=== PATIENT | male | born 1940 | race Native Hawaiian/Other Pacific Islander ===

== ENCOUNTER 2017-09-01 16:40 | Inpatient (IN) | payer MEDICARE ==
[2017-09-02] MEDS ORDERED: Albuterol-Ipratrop 3 mg / 0.5 (3 ml) UD INH PRN (16:13)
[2017-09-02 16:18] VITALS: BMI 29.8
--- NOTE | 2017-09-02 16:34 | CP.PCM.HP ---
History of Present Illness - History of Present Illness History of Present Illness: CC: s/p CVA Vipul Li is a 76 year old male with a past medical history of atrial fibrillation anticoagulated on Eliquis, essential hypertension, intermittent asthma (unspecified severity), gout, who presented to [facility] acute rehabilitation from [facility] after experiencing a CVA on 08/29/2017. The patient currently has no complaints. He is moderately aphasic after his CVA and continues to have left sided facial droop and left upper extremity weakness, however he is awake, alert, and coherent. Patient denies chest pain, shortness of breath, fevers, chills, nausea, vomiting, diarrhea, headache. All of the patient's questions were answered at the bedside. The patient is here in acute rehab for further PT/OT, reconditioning, and monitoring. PMD: Asael Oneil Surrogate decision maker: Reina Sam, spouse Present on Admission - Present on Admission Any Indicators Present on Admission: No Review of Systems - Review of Systems Review of Systems: A 12 point review of systems was conducted and found to be negative other than what was mentioned in the HPI. Past Patient History - Infectious Disease Hx of Infectious Diseases: None - Past Medical History & Family History Past Medical History?: Yes Past Family History: Reviewed and not pertinent - Past Social History Smoking Status: Never Smoked Alcohol: None Drugs: Denies Home Situation {Lives}: With Family - CARDIAC Hx Atrial Fibrillation: Yes Hx Hypertension: Yes - PULMONARY Hx Respiratory Disorders: Yes - MUSCULOSKELETAL/RHEUMATOLOGICAL Hx Gout: Yes Meds Allergies/Adverse Reactions: Allergies Allergy/AdvReac Type Severity Reaction Status Date / Time No Known Allergies Allergy Verified 09/02/17 11:58 Physical Exam - Additional Findings Additional findings: Physical exam: Constitutional- cooperative, awake, alert Head- NCAT, PERRL. + Left sided facial droop. Eye- PERRL, EOMI ENT- normal exam, MMM. Neck- normal inspection, supple, no JVD Respiratory- CTAB, no wheezes rales rhonchi Cardiovascular- RRR, +S1, +S2 no MRG GI/Abdominal- normal bowel sounds, soft, no mass, no hsm Skin- warm, dry Extremities Exam- + Left upper extremity 3/5 weakness, other extremities have normal strength. normal capillary refill, normal inspection Neurological Exam- alert, awake, oriented. + Aphasia, left facial droop, left upper extremity weakness Psych- normal mood, normal affect Assessment & Plan - Assessment and Plan (Free Text) Plan: ASSESSMENT/PLAN Vipul Li is a 76 year old male with a past medical history of atrial fibrillation anticoagulated on Eliquis, essential hypertension, asthma ( unspecified severity), gout, who presented to [facility] acute rehabilitation from [facility] after experiencing a CVA on 08/29/2017. The patient currently has no complaints. He is moderately aphasic after his CVA and continues to have left sided facial droop and left upper extremity weakness. The patient is here in acute rehab for further PT/OT, reconditioning, and monitoring. 1) Acute CVA - Per MRI at [facility] on 08/30- acute nonhemorrhagic deep white/tabor infarct, white matter small vessel disease - CTA head showed severe cavernous and severe supraclinoid left and right internal carotid artery stenosis, severe proximal P2 right posterior cerebral artery focal stenosis - Admit to acute rehab for physical therapy, occupational therapy, speech therapy, recreational therapy - Physiatry consultation with Dr. Boston - diet: mechanical soft, thin liquids, heart healthy diet - Continue ASA, statin, Eliquis 2) Essential hypertension - Continue Norvasc 10 mg po daily - Continue Hydralazine 25 mg po daily - Monitor vitals as per nursing protocol 3 )Atrial fibrillation - Anticoagulated on Eliquis - Monitor HR, apparently was not on any beta blockers previously; may consider adding low dose beta julio c if heart rate begins to be uncontrolled 4) Dyslipidemia - Continue Lipitor 20 mg po HS 5) Asthma, unspecified severity, intermittent - Continue Duoneb PRN 6) Gout - Continue Allopurinol - monitor for flare ups 7) DVT prophylaxis - Eliquis
[2017-09-03 06:58] LABS: BLOOD UREA NITROGEN 17 mg/dl (9-20); CALCIUM 8.9 mg/dL (8.4-10.2); GFR AFRICAN-AMERICAN > 60; GFR NON-AFRICAN AMERICAN > 60
[2017-09-03 06:59] LABS: HEMOGLOBIN 15.3 g/dL (12.0-18.0); MEAN CELL VOLUME 93.6 fl (80.0-94.0); MEAN CORPUSCULAR HEMOGLOBIN 31.1 pg (27.0-31.0); MEAN CORPUSCULAR HGB CONC 33.2 g/dL (33.0-37.0); RBC 4.92 Mil/uL (4.40-5.90); RED CELL DISTRIBUTION WIDTH 15.9 % (11.5-14.5); WHITE BLOOD COUNT 7.1 K/uL (4.8-10.8)
[2017-09-03] MEDS: Pantoprazole 40 mg EC Tab PO SCH (09:03)
--- NOTE | 2017-09-03 12:35 | PCM.OPOC ---
Physiatry Overall Plan of Care - Overall Plan of Care Estimated Length of Stay in Weeks: 2 Rehab Impairment: Mobility, Gait, Speech, Balance, Coordination Etiologic Diagnosis: Cerebrovascular Accident Rehab/Medical Prognosis: Good - Anticipated Interventions Physical Therapy:: Yes Occupational Therapy:: Yes Speech Therapy:: Yes Recreational Therapy:: Yes - Therapy Goals Bed Mobility: Supervision Ambulation: Supervision Functional Positional Changes:: Supervision - Discharge Plan Discharge Destination: Home
--- NOTE | 2017-09-03 12:38 | CP.PCM.CON ---
History of Present Illness - History of Present Illness History of Present Illness: Dr. Boston PMR consultation on Vipul Vargas, born 1940 who has been admitted to [facility] for acute inpatient rehabilitation after an acute right CVA with left HP and speech abnormality. He is right hand dominant and has been independent [employer]. Right ICA stenosis. Acute non-hemorrhagic right CVA Review of Systems - Constitutional Constitutional: absent: Anorexia, Chills - EENT Eyes: absent: Blind Spots Ears: absent: Decreased Hearing - Cardiovascular Cardiovascular: absent: Chest Pain - Respiratory Respiratory: absent: Dyspnea - Gastrointestinal Gastrointestinal: absent: Abdominal Pain, Constipation - Integumentary Integumentary: absent: Wounds - Neurological Neurological: Abnormal Gait, Abnormal Speech, Focal Weakness, Lack of Coordination, Weakness Past Patient History - Infectious Disease Hx of Infectious Diseases: None - Past Medical History & Family History Past Medical History?: Yes Past Family History: Reviewed and not pertinent - Past Social History Smoking Status: Never Smoked Alcohol: None Drugs: Denies Home Situation {Lives}: With Family - CARDIAC Hx Atrial Fibrillation: Yes Hx Hypertension: Yes - PULMONARY Hx Respiratory Disorders: Yes - HEMATOLOGICAL/ONCOLOGICAL Hx AIDS: No Hx Human Immunodeficiency Virus (HIV): No - MUSCULOSKELETAL/RHEUMATOLOGICAL Hx Gout: Yes Meds Allergies/Adverse Reactions: Allergies Allergy/AdvReac Type Severity Reaction Status Date / Time No Known Allergies Allergy Verified 09/02/17 11:58 - Medications Medications: Current Medications Albuterol/Ipratropium (Duoneb 3 Mg/0.5 Mg (3 Ml) Ud) 3 ml INH Q4 PRN PRN Reason: Shortness of Breath Allopurinol (Zyloprim) 100 mg PO DAILY [facility] Last Admin: 09/03/17 09:03 Dose: 100 mg Amlodipine Besylate (Norvasc) 10 mg PO DAILY [facility] Last Admin: 09/03/17 09:03 Dose: 10 mg Apixaban (Eliquis) 5 mg PO BID [facility] PRN Reason: Protocol Last Admin: 09/03/17 09:02 Dose: 5 mg Aspirin (Ecotrin) 81 mg PO DAILY [facility] Last Admin: 09/03/17 09:02 Dose: 81 mg Atorvastatin Calcium (Lipitor) 20 mg PO HS [facility] Last Admin: 09/02/17 21:17 Dose: 20 mg Hydralazine HCl (Apresoline) 25 mg PO DAILY [facility] Last Admin: 09/03/17 09:03 Dose: 25 mg Pantoprazole Sodium (Protonix Ec Tab) 40 mg PO DAILY [facility] Last Admin: 09/03/17 09:03 Dose: 40 mg Physical Exam - Constitutional Appears: Non-toxic - Head Exam Head Exam: ATRAUMATIC, NORMOCEPHALIC. absent: NORMAL INSPECTION (some left facial droop) - Eye Exam Eye Exam: EOMI - ENT Exam ENT Exam: Mucous Membranes Moist - Respiratory Exam Respiratory Exam: NORMAL BREATHING PATTERN - Cardiovascular Exam Cardiovascular Exam: REGULAR RHYTHM - GI/Abdominal Exam GI & Abdominal Exam: Normal Bowel Sounds - Extremities Exam Extremities exam: Negative for: calf tenderness - Neurological Exam Neurological exam: Alert, Oriented x3 (has decrease in left facial nerve) - Psychiatric Exam Psychiatric exam: Normal Affect (decreased coordination on the left with decrease UE strength. + dysarthria) Results - Vital Signs Recent Vital Signs: Last Vital Signs Temp 97.1 F L 09/03/17 07:54 Pulse 71 09/03/17 09:03 Resp 19 09/03/17 07:54 BP 144/85 09/03/17 09:03 Pulse Ox 98 09/03/17 07:54 - Labs Result Diagrams: 09/03/17 05:29 09/03/17 05:29 Labs: Laboratory Results - last 24 hr 09/03/17 09/03/17 05:29 05:29 WBC 7.1 RBC 4.92 Hgb 15.3 Hct 46.1 MCV 93.6 MCH 31.1 H MCHC 33.2 RDW 15.9 H Plt Count 170 Sodium 140 Potassium 3.6 Chloride 101 Carbon Dioxide 26 Anion Gap 17 BUN 17 Creatinine 1.1 Est GFR ( Amer) > 60 Est GFR (Non-Af Amer) > 60 Random Glucose 95 Calcium 8.9 Assessment & Plan - Assessment and Plan (Free Text) Assessment: PT/OT to continue to help increase functional independence Team conference for d/c planning Pain: controlled Vascular: no evidence of DVT GI: No evidence of constipation or diarrhea Patient is an excellent acute rehabilitation candidate and will have focused speech, PT, OT and recreational therapy to help facilitate a safe and appropriate d/c plan He has + dysarthria, decreased left UE coordination and decreased gait. Impairment code 01.1
[2017-09-04] MEDS: Pantoprazole 40 mg EC Tab PO SCH (09:09)
[2017-09-05] MEDS: Pantoprazole 40 mg EC Tab PO SCH (09:16)
[2017-09-06] MEDS: Pantoprazole 40 mg EC Tab PO SCH (08:25)
--- NOTE | 2017-09-06 14:40 | CP.PCM.PN ---
Subjective - Date & Time of Evaluation Date of Evaluation: 09/06/17 Time of Evaluation: 11:50 - Subjective Subjective: Patient seen and examined. Denied any complaint aside from slurring and left facial weakness. Objective - Vital Signs/Intake and Output Vital Signs (last 24 hours): Temp Pulse Resp BP Pulse Ox 97.3 F L 71 19 153/82 H 97 09/06/17 07:00 09/06/17 08:24 09/06/17 07:00 09/06/17 08:24 09/06/17 07:00 - Medications Medications: Current Medications Albuterol/Ipratropium (Duoneb 3 Mg/0.5 Mg (3 Ml) Ud) 3 ml INH Q4 PRN PRN Reason: Shortness of Breath Allopurinol (Zyloprim) 100 mg PO DAILY [facility] Last Admin: 09/06/17 08:25 Dose: 100 mg Amlodipine Besylate (Norvasc) 10 mg PO DAILY [facility] Last Admin: 09/06/17 08:24 Dose: 10 mg Apixaban (Eliquis) 5 mg PO BID [facility] PRN Reason: Protocol Last Admin: 09/06/17 08:24 Dose: 5 mg Aspirin (Ecotrin) 81 mg PO DAILY [facility] Last Admin: 09/06/17 08:24 Dose: 81 mg Atorvastatin Calcium (Lipitor) 20 mg PO HS [facility] Last Admin: 09/05/17 21:40 Dose: 20 mg Hydralazine HCl (Apresoline) 25 mg PO DAILY [facility] Last Admin: 09/06/17 08:24 Dose: 25 mg Pantoprazole Sodium (Protonix Ec Tab) 40 mg PO DAILY [facility] Last Admin: 09/06/17 08:25 Dose: 40 mg - Labs Labs: 09/03/17 05:29 09/03/17 05:29 - Constitutional Appears: No Acute Distress - Head Exam Head Exam: ATRAUMATIC - Eye Exam Eye Exam: absent: Scleral icterus - ENT Exam ENT Exam: Mucous Membranes Moist - Neck Exam Neck Exam: absent: Meningismus - Respiratory Exam Respiratory Exam: absent: Rales, Rhonchi, Wheezes, Respiratory Distress - Cardiovascular Exam Cardiovascular Exam: REGULAR RHYTHM, +S1, +S2 - GI/Abdominal Exam GI & Abdominal Exam: Soft. absent: Tenderness - Rectal Exam Rectal Exam: Deferred - Extremities Exam Extremities Exam: absent: Pedal Edema - Neurological Exam Neurological Exam: Alert, Oriented x3 - Psychiatric Exam Psychiatric exam: Normal Affect - Skin Skin Exam: Dry, Intact Assessment and Plan - Assessment and Plan (Free Text) Assessment: 76 yo male with history of AFib (on Eliquis), HTN, Asthma and Gout was admitted at [facility] because of Acute CVA on 08/29/2017 presenting with slurring of speech, left facial weakness. He was transferred to [facility] and admitted at Acute Rehab for continuation of PT. 1. Acute CVA MRI at [facility] showed acute non-hemorrhagic deep white/tabor infarct CTA showed severe left and right internal carotid artery stenosis and severe proximal right posterior cerebral artery stenosis continue ASA, statin. Eliquis and BP control continue PT/OT/ST 2. HTN BP stable continue Norvasc and Hydralazine 3. AFib rate controlled on Eliquis 4. HLD continue Lipitor 5. Asthma asymptomatic Duoned via nebulizer q 4hrs prn 6. Gout continue Allopurinol
[2017-09-07] MEDS: Pantoprazole 40 mg EC Tab PO SCH (08:31)
--- NOTE | 2017-09-07 13:26 | PSY.TMCNF ---
Nursing - Vital Signs Vital Signs (Last 8 hours): Vital Signs 09/07/17 09/07/17 09/07/17 08:21 08:31 08:32 Temperature 97.5 F L Pulse Rate 70 70 70 Respiratory 19 Rate Blood Pressure 136/76 136/70 133/78 O2 Sat by Pulse 98 Oximetry 09/07/17 09:00 Temperature Pulse Rate 70 Respiratory Rate Blood Pressure 133/78 O2 Sat by Pulse Oximetry Pain: 0 - Medications/Other Issues Comment: Pt at moderate nutritional risk. goal:1. Pt to consume 75-100% of meals. Follow-up due on 09/10/2017 - Bladder Management Bladder Pattern: Normal Voiding Method: Toilet, Urinal - Bowel Management Bowel Pattern: Normal - Goals/Time Frame Comments: Pt was seen awake and alert sitting in his wheelchair in his room. Pt agreeable to participate in session and was brought into recreation room. Pt reported that he would like to be called "Scout' throughout stay. Pt was [id number] however, pt will report incorrectly his age. Pt required verbal cues for repetition of responses at times 2' dysarthria. Pt was able to identify his leisure interests such as cooking, watching television, watching movies, watching sports, and going food shopping. Pt reported that he does cooking and food shopping at home for . Pt agreed to participate in modified agata card task and required min verbal cues for carryover of task rules. Pt tolerated duration of session and participated in bingo task with peers and was mod I with task. Pt returned to room and assisted pt with dinner setup, pt expressed that he was content. Physical Therapy - Transfers Sit to Stand: Verbal Cues, Contact Guard - Ambulation Level of Assistance: Verbal Cues, Contact Guard, Minimal Assistance Distance (ft.): 150 Assistive Devices: N/A, Rolling Walker - Stair Negotiation Stairs: Level of Assistance: Verbal Cues, Contact Guard Number of Stairs: 11 Stairs: Assistive Devices: Left Handrail, Right Handrail - Standing Balance Static Stand: Contact Guard Assist Dynamic Stand: Contact Guard Assist, Minimal Assistance - Insight/Carryover Insight/Carryover: Good - Patient/Family Education Comment: CVA recovery - Assessment/Plan Assessment: Precautions:fall/safety precautions, pain managment, cardiac precautions. Pt is a 76 yo male presenting to acute rehab s/p acute CVA. Pt presented with impaired dynamic standing balance, poor activity tolerance, impaired R handed coordination/dexterity requiring extended time to complete B/ L manipulation tasks . Patient also demoed very poor safety awareness required moderate cueing during transfers/completion self care . Patient would benefit from skilled OT services 5-6x/week as per plan of care to maximize is functional independence prior to a D/C home with his as pt was independent with adls and iadls at baseline. - Goals Timeframe: 2 weeks Goals: Mod I transfers. Mod I ub self care. mod I lb self care. mod I toileting tasks. tub transfer with supervision - Provider Therapist: Mikayla Lazaro PT License Number: [id number] Occupational Therapy - Arousal/Attention/Orientation Patient Orientation: Person, Place - ADL/IADL Self Feeding: Verbal Cues, Set-up Help Grooming: Verbal Cues, Set-up Help Bathing-Upper Extremity: Minimal Assistance Bathing-Lower Extremity: Minimal Assistance Dressing-Upper Extremity: Minimal Assistance Dressing-Lower Extremity: Minimal Assistance - Sitting Balance Static Sitting: Independent with upper extremity support Dynamic Sitting: Requires supervision - Transfers Wheelchair to Bed Transfers: Contact Guard, Minimal Assistance Toilet Transfers: Contact Guard, Minimal Assistance Tub Transfers: Contact Guard, Minimal Assistance Comment: tub/shower transfer TBA - Wheelchair Management Level of Assistance: Minimal Assistance - Upper Extremity Status Right Upper Extremity Comment: AROM WFL. grasp/coordination WFL Left Upper Extremity Comment: AROM WFL. imapired grasp strength. impaired opposition. impaired FM dexterity/coordination. 9 hole peg test LUE: 2 mins 30 seconds - Insight/Carryover Insight/Carryover: Good - Patient/Family Education Comment: CVA recovery - Assessment/Plan Assessment: Precautions:fall/safety precautions, pain managment, cardiac precautions. Pt is a 76 yo male presenting to acute rehab s/p acute CVA. Pt presented with impaired dynamic standing balance, poor activity tolerance, impaired R handed coordination/dexterity requiring extended time to complete B/ L manipulation tasks . Patient also demoed very poor safety awareness required moderate cueing during transfers/completion self care . Patient would benefit from skilled OT services 5-6x/week as per plan of care to maximize is functional independence prior to a D/C home with his as pt was independent with adls and iadls at baseline. - Goals Timeframe: 2 weeks Goals: Mod I transfers. Mod I ub self care. mod I lb self care. mod I toileting tasks. tub transfer with supervision - Provider Therapist: RICH Long License Number: [id number] Speech Therapy - Consult Information Patient on Program: Yes Medical Diagnosis: CVA Treatment Diagnosis: -mild to moderate dysarthria. -moderate cognitive deficits. -suspected moderate oropharyngeal dysphagia - Assessment Memory Impairment: Moderate Speech/Articulation Impairment: Moderate Dysphagia/Swallowing Impairment: Moderate - Plan Assessment: Precautions:fall/safety precautions, pain managment, cardiac precautions. Pt is a 76 yo male presenting to acute rehab s/p acute CVA. Pt presented with impaired dynamic standing balance, poor activity tolerance, impaired R handed coordination/dexterity requiring extended time to complete B/ L manipulation tasks . Patient also demoed very poor safety awareness required moderate cueing during transfers/completion self care . Patient would benefit from skilled OT services 5-6x/week as per plan of care to maximize is functional independence prior to a D/C home with his as pt was independent with adls and iadls at baseline. - Provider Therapist: Laisha Goodman License Number: [id number] Recreational Therapy - Participation Participation: Participates in Individual and/or Group Sessions - Attendance Attendance: 3-5 times per week - Activities Leisure Activities: Cards and Games - Socialization Level of Socialization: Initiates/interacts freely with care givers and peer - Diversional Time Diversional Time: likes playing bingo, cards - Assessment Assessment/Plan: Precautions:fall/safety precautions, pain managment, cardiac precautions. Pt is a 76 yo male presenting to acute rehab s/p acute CVA. Pt presented with impaired dynamic standing balance, poor activity tolerance, impaired R handed coordination/dexterity requiring extended time to complete B/ L manipulation tasks . Patient also demoed very poor safety awareness required moderate cueing during transfers/completion self care . Patient would benefit from skilled OT services 5-6x/week as per plan of care to maximize is functional independence prior to a D/C home with his as pt was independent with adls and iadls at baseline. - Provider Therapist: Bre Schmidt, NURSING MANAGER #[id number] Nutrition - Current Diet Current Diet/ Supplement/ Feedings: mech altered(finely chopped)thin liquids 2 gram Na diet - Appetite Percent Meal Consumed: 50-74% - Assessment/Goals/Time Frame Assessment/Goals/Time Frame: Pt at moderate nutritional risk. goal:1. Pt to consume 75-100% of meals. Follow-up due on 09/10/2017 - Provider Provider: Chika Chapin RD Case Management - Discharge Plan Discharge Plan: Home with significant other/family Rehabilitation Plan - Treatment Plan Treatment Plan: Physical Therapy, Occupational Therapy, Speech, Dietary, Patient /Family Education - Discharge Plan Estimated Date of Discharge: 09/17/17 Discharge to: Home
--- NOTE | 2017-09-07 13:57 | CP.PCM.PN ---
Subjective - Date & Time of Evaluation Date of Evaluation: 09/07/17 Time of Evaluation: 13:56 - Subjective Subjective: Patient seen in the room denies sob/cp stable wants to go home and has decreased insight into his abilities no EATON continue current care Objective - Vital Signs/Intake and Output Vital Signs (last 24 hours): Temp Pulse Resp BP Pulse Ox 97.5 F L 70 19 133/78 98 09/07/17 08:21 09/07/17 09:00 09/07/17 08:21 09/07/17 09:00 09/07/17 08:21 - Medications Medications: Current Medications Albuterol/Ipratropium (Duoneb 3 Mg/0.5 Mg (3 Ml) Ud) 3 ml INH Q4 PRN PRN Reason: Shortness of Breath Allopurinol (Zyloprim) 100 mg PO DAILY [facility] Last Admin: 09/07/17 08:32 Dose: 100 mg Amlodipine Besylate (Norvasc) 10 mg PO DAILY [facility] Last Admin: 09/07/17 08:32 Dose: 10 mg Apixaban (Eliquis) 5 mg PO BID [facility] PRN Reason: Protocol Last Admin: 09/07/17 08:31 Dose: 5 mg Aspirin (Ecotrin) 81 mg PO DAILY [facility] Last Admin: 09/07/17 08:31 Dose: 81 mg Atorvastatin Calcium (Lipitor) 20 mg PO HS [facility] Last Admin: 09/06/17 21:18 Dose: 20 mg Hydralazine HCl (Apresoline) 25 mg PO DAILY [facility] Last Admin: 09/07/17 08:31 Dose: 25 mg Pantoprazole Sodium (Protonix Ec Tab) 40 mg PO DAILY [facility] Last Admin: 09/07/17 08:31 Dose: 40 mg - Labs Labs: 09/03/17 05:29 09/03/17 05:29
[2017-09-08] MEDS: Pantoprazole 40 mg EC Tab PO SCH (08:52)
--- NOTE | 2017-09-08 11:58 | CP.PCM.PN ---
Subjective - Date & Time of Evaluation Date of Evaluation: 09/08/17 Time of Evaluation: 10:00 - Subjective Subjective: The patient was seen and examined at bedside. He is doing well today and has no new complaints. Denies cp, sob, fever, chills. Participating with therapies. Objective - Vital Signs/Intake and Output Vital Signs (last 24 hours): Temp Pulse Resp BP Pulse Ox 97.3 F L 82 19 139/67 97 09/08/17 09:02 09/08/17 09:02 09/08/17 09:02 09/08/17 09:02 09/08/17 09:02 - Medications Medications: Current Medications Albuterol/Ipratropium (Duoneb 3 Mg/0.5 Mg (3 Ml) Ud) 3 ml INH Q4 PRN PRN Reason: Shortness of Breath Allopurinol (Zyloprim) 100 mg PO DAILY [facility] Last Admin: 09/08/17 08:52 Dose: 100 mg Amlodipine Besylate (Norvasc) 10 mg PO DAILY [facility] Last Admin: 09/08/17 08:52 Dose: 10 mg Apixaban (Eliquis) 5 mg PO BID [facility] PRN Reason: Protocol Last Admin: 09/08/17 08:51 Dose: 5 mg Aspirin (Ecotrin) 81 mg PO DAILY [facility] Last Admin: 09/08/17 08:52 Dose: 81 mg Atorvastatin Calcium (Lipitor) 20 mg PO HS [facility] Last Admin: 09/07/17 21:27 Dose: 20 mg Hydralazine HCl (Apresoline) 25 mg PO DAILY [facility] Last Admin: 09/08/17 08:51 Dose: 25 mg Pantoprazole Sodium (Protonix Ec Tab) 40 mg PO DAILY [facility] Last Admin: 09/08/17 08:52 Dose: 40 mg - Labs Labs: 09/03/17 05:29 09/03/17 05:29 - Additional Findings Additional findings: Physical exam: Constitutional- cooperative, awake, alert Head- NCAT, PERRL. + Left sided facial droop. Eye- PERRL, EOMI ENT- normal exam, MMM. Neck- normal inspection, supple, no JVD Respiratory- CTAB, no wheezes rales rhonchi Cardiovascular- RRR, +S1, +S2 no MRG GI/Abdominal- normal bowel sounds, soft, no mass, no hsm Skin- warm, dry Extremities Exam- + Left upper extremity 3/5 weakness, other extremities have normal strength. normal capillary refill, normal inspection Neurological Exam- alert, awake, oriented. + Aphasia, left facial droop, left upper extremity weakness Psych- normal mood, normal affect Assessment and Plan - Assessment and Plan (Free Text) Plan: Vipul Li is a 76 year old male with a past medical history of atrial fibrillation anticoagulated on Eliquis, essential hypertension, asthma ( unspecified severity), gout, who presented to [facility] acute rehabilitation from [facility] after experiencing a CVA on 08/29/2017. The patient currently has no complaints. He is moderately aphasic after his CVA and continues to have left sided facial droop and left upper extremity weakness. The patient is here in acute rehab for further PT/OT, reconditioning, and monitoring. 1) Acute CVA - Per MRI at [facility] on 08/30- acute nonhemorrhagic deep white/tabor infarct, white matter small vessel disease - CTA head showed severe cavernous and severe supraclinoid left and right internal carotid artery stenosis, severe proximal P2 right posterior cerebral artery focal stenosis - Admit to acute rehab for physical therapy, occupational therapy, speech therapy, recreational therapy - Physiatry consultation with Dr. Boston - diet: heart healthy diet - Continue ASA, statin, Eliquis 2) Essential hypertension - Continue Norvasc 10 mg po daily - Continue Hydralazine 25 mg po daily - Monitor vitals as per nursing protocol 3 )Atrial fibrillation - Anticoagulated on Eliquis - rate controlled 4) Dyslipidemia - Continue Lipitor 20 mg po HS 5) Asthma, unspecified severity, intermittent - Continue Duoneb PRN 6) Gout - Continue Allopurinol - monitor for flare ups 7) DVT prophylaxis - Eliquis
[2017-09-09 07:16] LABS: HEMOGLOBIN 15.1 g/dL (12.0-18.0); MEAN CELL VOLUME 93.5 fl (80.0-94.0); MEAN CORPUSCULAR HEMOGLOBIN 31.4 pg (27.0-31.0); MEAN CORPUSCULAR HGB CONC 33.6 g/dL (33.0-37.0); RBC 4.8 Mil/uL (4.40-5.90); RED CELL DISTRIBUTION WIDTH 15.6 % (11.5-14.5); WHITE BLOOD COUNT 5.9 K/uL (4.8-10.8)
[2017-09-09 07:19] LABS: CALCIUM 9.1 mg/dL (8.4-10.2)
[2017-09-09] MEDS: Pantoprazole 40 mg EC Tab PO SCH (08:46)
[2017-09-10] MEDS: Pantoprazole 40 mg EC Tab PO SCH (08:51)
[2017-09-10 08:58] VITALS: RESP 19
--- NOTE | 2017-09-10 13:02 | CP.PCM.PN ---
Subjective - Date & Time of Evaluation Date of Evaluation: 09/10/17 Time of Evaluation: 13:01 - Subjective Subjective: Patient seen in the room denies sob/cp no pain at this point thinks he is ready to go home but not yet the case continue PT/OT Objective - Vital Signs/Intake and Output Vital Signs (last 24 hours): Temp Pulse Resp BP Pulse Ox 97.5 F L 64 19 127/64 98 09/10/17 08:58 09/10/17 08:58 09/10/17 08:58 09/10/17 08:58 09/10/17 08:58 - Medications Medications: Current Medications Albuterol/Ipratropium (Duoneb 3 Mg/0.5 Mg (3 Ml) Ud) 3 ml INH Q4 PRN PRN Reason: Shortness of Breath Allopurinol (Zyloprim) 100 mg PO DAILY [facility] Last Admin: 09/10/17 08:52 Dose: 100 mg Amlodipine Besylate (Norvasc) 10 mg PO DAILY [facility] Last Admin: 09/10/17 08:51 Dose: 10 mg Apixaban (Eliquis) 5 mg PO BID [facility] PRN Reason: Protocol Aspirin (Ecotrin) 81 mg PO DAILY [facility] Last Admin: 09/10/17 08:51 Dose: 81 mg Atorvastatin Calcium (Lipitor) 20 mg PO HS [facility] Last Admin: 09/09/17 22:30 Dose: 20 mg Hydralazine HCl (Apresoline) 25 mg PO DAILY [facility] Last Admin: 09/10/17 08:53 Dose: 25 mg Pantoprazole Sodium (Protonix Ec Tab) 40 mg PO DAILY [facility] Last Admin: 09/10/17 08:51 Dose: 40 mg - Labs Labs: 09/09/17 05:25 09/09/17 05:25
--- NOTE | 2017-09-10 14:21 | CP.PCM.PN ---
Subjective - Date & Time of Evaluation Date of Evaluation: 09/10/17 Time of Evaluation: 11:00 - Subjective Subjective: Patient seen and examined. Still with left facial weakness. Objective - Vital Signs/Intake and Output Vital Signs (last 24 hours): Temp Pulse Resp BP Pulse Ox 97.5 F L 64 19 127/64 98 09/10/17 08:58 09/10/17 08:58 09/10/17 08:58 09/10/17 08:58 09/10/17 08:58 - Medications Medications: Current Medications Albuterol/Ipratropium (Duoneb 3 Mg/0.5 Mg (3 Ml) Ud) 3 ml INH Q4 PRN PRN Reason: Shortness of Breath Allopurinol (Zyloprim) 100 mg PO DAILY [facility] Last Admin: 09/10/17 08:52 Dose: 100 mg Amlodipine Besylate (Norvasc) 10 mg PO DAILY [facility] Last Admin: 09/10/17 08:51 Dose: 10 mg Apixaban (Eliquis) 5 mg PO BID [facility] PRN Reason: Protocol Aspirin (Ecotrin) 81 mg PO DAILY [facility] Last Admin: 09/10/17 08:51 Dose: 81 mg Atorvastatin Calcium (Lipitor) 20 mg PO HS [facility] Last Admin: 09/09/17 22:30 Dose: 20 mg Hydralazine HCl (Apresoline) 25 mg PO DAILY [facility] Last Admin: 09/10/17 08:53 Dose: 25 mg Pantoprazole Sodium (Protonix Ec Tab) 40 mg PO DAILY [facility] Last Admin: 09/10/17 08:51 Dose: 40 mg - Labs Labs: 09/09/17 05:25 09/09/17 05:25 - Constitutional Appears: No Acute Distress - Head Exam Head Exam: ATRAUMATIC - Eye Exam Eye Exam: PERRL - ENT Exam ENT Exam: Mucous Membranes Moist - Neck Exam Neck Exam: absent: Meningismus - Respiratory Exam Respiratory Exam: absent: Rales, Rhonchi, Wheezes, Respiratory Distress - Cardiovascular Exam Cardiovascular Exam: REGULAR RHYTHM, +S1, +S2 - GI/Abdominal Exam GI & Abdominal Exam: Soft. absent: Tenderness - Rectal Exam Rectal Exam: Deferred - Neurological Exam Neurological Exam: Alert, Oriented x3 - Psychiatric Exam Psychiatric exam: Normal Affect - Skin Skin Exam: Dry, Intact Assessment and Plan - Assessment and Plan (Free Text) Assessment: 76 yo male with history of AFib (on Eliquis), HTN, Asthma and Gout was admitted at [facility] because of Acute CVA on 08/29/2017 presenting with slurring of speech and left facial weakness. He was transferred to [facility] and admitted at Acute Rehab for continuation of PT. 1. Acute CVA MRI at [facility] showed acute non-hemorrhagic deep white/tabor infarct CTA showed severe left and right internal carotid artery stenosis and severe proximal right posterior cerebral artery stenosis continue ASA, statin and BP control continue PT/OT/ST 2. HTN BP stable continue Norvasc and Hydralazine 3. AFib rate controlled continue Eliquis 4. HLD continue Lipitor 5. Asthma asymptomatic Duoned via nebulizer q 4hrs prn 6. Gout continue Allopurinol
[2017-09-11] MEDS: Pantoprazole 40 mg EC Tab PO SCH (08:28)
[2017-09-11 08:49] VITALS: BP 133/81; PULSE 62; TEMP 98.9; O2SAT 97
--- NOTE | 2017-09-11 11:48 | CP.PCM.DIS ---
Provider - Provider Date of Admission: 09/02/17 15:29 Attending physician: Tony Lance DO Primary care physician: Chika Oneil MD Time Spent in preparation of Discharge (in minutes): 30 Diagnosis - Discharge Diagnosis (1) Acute CVA (cerebrovascular accident) Status: Acute (2) HTN (hypertension) Status: Acute (3) Afib Status: Acute (4) HLD (hyperlipidemia) Status: Acute (5) Asthma Status: Acute (6) Gout Status: Acute Hospital Course - Lab Results Lab Results: Most Recent Lab Values WBC 5.9 K/uL (4.8-10.8) 09/09/17 05:25 RBC 4.80 Mil/uL (4.40-5.90) 09/09/17 05:25 Hgb 15.1 g/dL (12.0-18.0) 09/09/17 05:25 Hct 44.9 % (35.0-51.0) 09/09/17 05:25 MCV 93.5 fl (80.0-94.0) 09/09/17 05:25 MCH 31.4 pg (27.0-31.0) H 09/09/17 05:25 MCHC 33.6 g/dL (33.0-37.0) 09/09/17 05:25 RDW 15.6 % (11.5-14.5) H 09/09/17 05:25 Plt Count 179 K/uL (130-400) 09/09/17 05:25 Sodium 139 mmol/l (132-148) 09/09/17 05:25 Potassium 4.1 MMOL/L (3.6-5.0) 09/09/17 05:25 Chloride 99 mmol/L (98-107) 09/09/17 05:25 Carbon Dioxide 26 mmol/L (22-30) 09/09/17 05:25 Anion Gap 18 (10-20) 09/09/17 05:25 BUN 23 mg/dl (9-20) H 09/09/17 05:25 Creatinine 1.4 mg/dl (0.8-1.5) 09/09/17 05:25 Est GFR ( Amer) 59 09/09/17 05:25 Est GFR (Non-Af Amer) 49 09/09/17 05:25 Random Glucose 88 mg/dL (75-110) 09/09/17 05:25 Calcium 9.1 mg/dL (8.4-10.2) 09/09/17 05:25 - Hospital Course Hospital Course: 76 yo male with history of AFib (on Eliquis), HTN, Asthma and Gout was admitted at [facility] because of Acute CVA on 08/29/2017 presenting with slurring of speech and left facial weakness. He was transferred to [facility] and admitted at Acute Rehab for continuation of PT. Pt did well with PT, is stable for discharge home with home meds. Scripts given. To follow up with PCP, NEURO, CARDIOLOGY in one week. HD stable, NAD. 1. Acute CVA MRI at [facility] showed acute non-hemorrhagic deep white/tabor infarct CTA showed severe left and right internal carotid artery stenosis and severe proximal right posterior cerebral artery stenosis continue ASA, statin and BP control continue PT/OT/ST 2. HTN BP stable continue Norvasc and Hydralazine 3. AFib rate controlled continue Eliquis 4. HLD continue Lipitor 5. Asthma asymptomatic Duoned via nebulizer q 4hrs prn 6. Gout continue Allopurinol Discharge Exam - Head Exam Head Exam: ATRAUMATIC, NORMOCEPHALIC - Eye Exam Eye Exam: EOMI, Normal appearance - ENT Exam ENT Exam: Mucous Membranes Moist, Normal Oropharynx - Respiratory Exam Respiratory Exam: Clear to PA & Lateral, NORMAL BREATHING PATTERN - Cardiovascular Exam Cardiovascular Exam: RRR, +S1, +S2 - GI/Abdominal Exam GI & Abdominal Exam: Normal Bowel Sounds, Soft. absent: Tenderness - Extremities Exam Extremities exam: normal capillary refill, pedal pulses present - Back Exam Back exam: absent: CVA tenderness (L), CVA tenderness (R) - Neurological Exam Neurological exam: Alert, Reflexes Normal - Psychiatric Exam Psychiatric exam: Normal Affect, Normal Mood - Skin Skin Exam: Dry, Warm Discharge Plan - Discharge Medications Prescriptions: Allopurinol [Zyloprim] 100 mg PO DAILY #30 tab amLODIPine [Norvasc] 10 mg PO DAILY #30 tab Apixaban [Eliquis] 5 mg PO BID #60 tab Aspirin [Ecotrin] 81 mg PO DAILY #30 tabec Atorvastatin [Lipitor] 20 mg PO HS #30 tab hydrALAZINE [Apresoline] 25 mg PO DAILY #30 tab Pantoprazole [Protonix EC Tab] 40 mg PO DAILY #30 ect - Follow Up Plan Condition: GOOD Disposition: HOME/ ROUTINE Instructions: Stroke, Preventing Falls Referrals: Chika Oneil MD [Primary Care Provider] -
--- NOTE | 2017-09-11 19:43 | CP.PCM.PN ---
Subjective - Date & Time of Evaluation Date of Evaluation: 09/11/17 Time of Evaluation: 12:30 - Subjective Subjective: no acute complaints at present Objective - Vital Signs/Intake and Output Vital Signs (last 24 hours): Temp Pulse Resp BP Pulse Ox 98.9 F 62 19 133/81 97 09/11/17 08:48 09/11/17 08:48 09/11/17 08:48 09/11/17 08:48 09/11/17 08:48 - Medications Medications: Current Medications Albuterol/Ipratropium (Duoneb 3 Mg/0.5 Mg (3 Ml) Ud) 3 ml INH Q4 PRN PRN Reason: Shortness of Breath Allopurinol (Zyloprim) 100 mg PO DAILY [facility] Last Admin: 09/11/17 08:28 Dose: 100 mg Amlodipine Besylate (Norvasc) 10 mg PO DAILY [facility] Last Admin: 09/11/17 08:29 Dose: 10 mg Apixaban (Eliquis) 5 mg PO BID [facility] PRN Reason: Protocol Last Admin: 09/11/17 17:41 Dose: 5 mg Aspirin (Ecotrin) 81 mg PO DAILY [facility] Last Admin: 09/11/17 08:28 Dose: 81 mg Atorvastatin Calcium (Lipitor) 20 mg PO HS [facility] Last Admin: 09/10/17 21:31 Dose: 20 mg Hydralazine HCl (Apresoline) 25 mg PO DAILY [facility] Last Admin: 09/11/17 08:26 Dose: 25 mg Pantoprazole Sodium (Protonix Ec Tab) 40 mg PO DAILY [facility] Last Admin: 09/11/17 08:28 Dose: 40 mg - Labs Labs: 09/09/17 05:25 09/09/17 05:25 - Head Exam Head Exam: ATRAUMATIC, NORMAL INSPECTION, NORMOCEPHALIC - Eye Exam Eye Exam: EOMI, Normal appearance Pupil Exam: NORMAL ACCOMODATION, PERRL - ENT Exam ENT Exam: Mucous Membranes Moist, Normal Exam - Neck Exam Neck Exam: Full ROM, Normal Inspection - Respiratory Exam Respiratory Exam: Clear to Ausculation Bilateral, NORMAL BREATHING PATTERN - Cardiovascular Exam Cardiovascular Exam: REGULAR RHYTHM - GI/Abdominal Exam GI & Abdominal Exam: Normal Bowel Sounds - Exam External exam: NORMAL EXTERNAL EXAM - Extremities Exam Extremities Exam: Full ROM, Normal Capillary Refill - Back Exam Back Exam: NORMAL INSPECTION - Neurological Exam Neurological Exam: Alert, Awake Neuro motor strength exam: Left Upper Extremity: 4, Right Upper Extremity: 4, Left Lower Extremity: 4, Right Lower Extremity: 4 - Psychiatric Exam Psychiatric exam: Normal Affect - Skin Skin Exam: Dry, Normal Color Assessment and Plan (1) Acute CVA (cerebrovascular accident) Assessment & Plan: plan for physical, occupational rec therapy plan for Dc home covering for Dr Boston for today Status: Acute (2) Afib Status: Acute (3) Asthma Status: Acute (4) Gout Status: Acute (5) HLD (hyperlipidemia) Status: Acute (6) HTN (hypertension) Status: Acute
== END 2017-09-11 17:00 | disposition home health service (06) | DRG 57 ==
PROVIDERS: ADMIT Internal Medicine; ATTEND Internal Medicine
PROC: F07M6FZ Therapeutic Exercise Treatment of Musculoskeletal System - Whole Body using Assistive, Adaptive, Supportive or Protective Equipment (ICD-10-PCS; principal; 2017-09-02)
PROC: F08Z4FZ Home Management Treatment using Assistive, Adaptive, Supportive or Protective Equipment (ICD-10-PCS; 2017-09-02)
PROC: F06Z6ZZ Communicative/Cognitive Integration Skills Treatment (ICD-10-PCS; 2017-09-02)
DX: I69.354 Hemiplegia and hemiparesis following cerebral infarction affecting left non-dominant side (principal); E78.5 Hyperlipidemia, unspecified; I10 Essential (primary) hypertension; I48.91 Unspecified atrial fibrillation; I73.9 Peripheral vascular disease, unspecified; J45.20 Mild intermittent asthma, uncomplicated; M10.9 Gout, unspecified; I69.392 Facial weakness following cerebral infarction; I69.320 Aphasia following cerebral infarction; Z79.01 Long term (current) use of anticoagulants; Z79.899 Other long term (current) drug therapy; Z86.73 Personal history of transient ischemic attack (TIA), and cerebral infarction without residual deficits; I69.322 Dysarthria following cerebral infarction